=== PATIENT | male | born 1970 | race Caucasian/White ===

== ENCOUNTER 2017-03-06 17:04 | Emergency (ER) | payer OTHER ==
[2017-03-06 19:02] LABS: HEMOGLOBIN 14.7 gm/dl (14.0-17.5); RED BLOOD COUNT 4.79 M/UL (4.20-5.50); WHITE BLOOD COUNT 12.9 K/UL (4.5-11.0)
[2017-03-06 19:26] LABS: BUN/CREATININE RATIO 16 (0-10)
== END 2017-03-06 21:28 | disposition home or self-care (01) ==
LOC: ER1 17:04
PROVIDERS: Physician Assistant
DX: M79.651 Pain in right thigh (principal); E87.6 Hypokalemia; K21.9 Gastro-esophageal reflux disease without esophagitis; B35.3 Tinea pedis; I10 Essential (primary) hypertension; Z95.2 Presence of prosthetic heart valve
CPT/HCPCS: 36415; 80053; 85025; 85379; 99283